=== PATIENT | male | born 1940 | race Two or more races ===

== ENCOUNTER → 2016-09-04 | Outpatient (CLI) | payer MEDICARE, OTHER ==
[~2016-09-04] MED LIST: ALLO300T PO; CHOL10003 PO; FINA5TAB4 PO; LOSA25TA5 PO; METO50TA82 PO; MULT-464 PO; RIVA20TA PO; ROSU5TAB PO; TAMS0.4C2 PO; WARF5TAB PO; WARF7.5T PO
[2016-09-04 09:30] LABS: BLOOD UREA NITROGEN 16 mg/dL (7-18)
[2016-09-04 09:33] LABS: ASPARTATE AMINO TRANSFERASE 17 U/L (15-37)
== END | disposition home or self-care (01) ==
LOC: STAR 08:12
PROVIDERS: ATTEND Urology
DX: Z01.818 Encounter for other preprocedural examination (principal); N40.1 Benign prostatic hyperplasia with lower urinary tract symptoms
CPT/HCPCS: 36415; 80053; 81003; 87086; 93005

== ENCOUNTER 2016-09-20 05:55 | Observation (INO) | payer MEDICARE, OTHER ==
[~2016-09-20] VITALS: Ht 182.9 cm; Wt 112.9 kg
[2016-09-20 07:02] VITALS: BP 142/97
[2016-09-20] MEDS ORDERED: LACTATED RINGERS 1,000 ML IV SCH (07:07)
[2016-09-20] MEDS ORDERED: LIDOCAINE 1%, 2ML SQ PRN (07:30)
[2016-09-20] MEDS ORDERED: FLUORESCEIN SODIUM 500 MG/5 ML ONE (08:42)
[2016-09-20] MEDS ORDERED: ALBUTEROL SULFATE 2.5 MG/3 ML NPPB PRN (09:00)
[2016-09-20] MEDS ORDERED: LABETALOL 5MG/ML, 20ML IV PRN (09:00)
[2016-09-20] MEDS ORDERED: METOPROLOL 1 MG/ML, 5ML IV PRN (09:00)
[2016-09-20] MEDS ORDERED: ONDANSETRON 2MG/ML, 2ML IVPush PRN (09:00)
[2016-09-20] MEDS ORDERED: EPHEDRINE 50 MG/ML, 1ML IVPush PRN (09:00)
[2016-09-20] MEDS ORDERED: MIDAZOLAM 1 MG/ML, 2ML IV PRN (09:00)
[2016-09-20] MEDS ORDERED: HYDROmorphone 1 MG/ML, 1ML IV PRN (09:00)
[2016-09-20] MEDS ORDERED: hydrALAzine 20 MG/ML, 1ML IV PRN (09:00)
[2016-09-20] MEDS ORDERED: OXYcodone 5 MG/5 ML ORAL.SOL UDC PO PRN (09:00)
[2016-09-20] MEDS ORDERED: MEPERIDINE/PF 25MG/0.5ML IVPush PRN (09:00)
[2016-09-20] MEDS ORDERED: ACETAMINOPHEN 325 MG TABLET PO PRN (09:00)
[2016-09-20] MEDS ORDERED: PROMETHAZINE 25 MG/ML, 1ML IV PRN (09:00)
[2016-09-20] MEDS ORDERED: ACETAMINOPHEN 325 MG TABLET ONE (10:55)
[2016-09-20] MEDS ORDERED: OXYcodone 5 MG/5 ML ORAL.SOL UDC ONE (10:55)
[2016-09-20] MEDS ORDERED: ACETAMINOPHEN 650 MG/20.3 ML UDC ONE (10:55)
[2016-09-20] MEDS ORDERED: FENTANYL PF 100 MCG/2ML ONE (10:59)
[2016-09-20] MEDS: FENTANYL PF 100 MCG/2ML IV PRN ×2 (11:10→11:17)
[2016-09-20 12:00] VITALS: BP 135/81
[2016-09-20] MEDS ORDERED: ONDANSETRON 2MG/ML, 2ML IV PRN (12:30)
[2016-09-20] MEDS ORDERED: HYDROmorphone 2 MG/ML, 1ML IV PRN (12:30)
[2016-09-20] MEDS ORDERED: D5%-0.45NACL+KCL 20MEQ 1,000 ML IV SCH (12:30)
[2016-09-20] MEDS ORDERED: OXYcodone/APAP 5/325MG TABLET PO PRN (12:30)
[2016-09-20] MEDS ORDERED: ROCURONIUM 10 MG/ML ONE (15:50)
[2016-09-20] MEDS ORDERED: PROPOFOL 10 MG/ML, 20ML ONE (15:50)
[2016-09-20] MEDS ORDERED: SUCCINYLCHOLINE 20 MG/ML, 10ML ONE (15:50)
[2016-09-20] MEDS ORDERED: CEFAZOLIN 1,000 MG ONE (15:50)
[2016-09-20] MEDS ORDERED: DEXAMETHASONE 4 MG/ML, 1ML ONE (15:50)
[2016-09-20] MEDS: METOPROLOL TARTRATE 100 MG TABLET PO SCH (17:20)
[2016-09-20 19:52] VITALS: BP 109/75
[2016-09-20] MEDS ORDERED: RIVAROXABAN 20 MG TABLET PO SCH (21:00)
[2016-09-20] MEDS ORDERED: ATORVASTATIN 40 MG TABLET PO SCH (21:00)
[2016-09-20 23:31] VITALS: BP 103/69
[2016-09-21 03:47] VITALS: BP 114/74
[2016-09-21] MEDS: METOPROLOL TARTRATE 100 MG TABLET PO SCH (05:51)
[2016-09-21 06:50] VITALS: BP 116/74
[2016-09-21] MEDS ORDERED: LOSARTAN 25MG TABLET PO SCH (09:00)
[2016-09-21] MEDS ORDERED: MULTIVITAMIN 1 TABLET PO SCH (09:00)
[2016-09-21] MEDS ORDERED: CHOLECALCIFEROL 1,000 UNIT TABLET PO SCH (09:00)
[2016-09-21 11:06] VITALS: BP 117/74
[2016-09-21] MEDS ORDERED: OXYC-302 PO (12:13)
== END 2016-09-21 12:25 | disposition home or self-care (01) ==
LOC: OUT 05:55 → 4NOR 11:59 → OUT 15:31 → DCLOUNGE 09-21 11:45
PROVIDERS: ADMIT Urology; ATTEND Urology
DX: N40.1 Benign prostatic hyperplasia with lower urinary tract symptoms (principal); N13.8 Other obstructive and reflux uropathy; R39.14 Feeling of incomplete bladder emptying; Z87.440 Personal history of urinary (tract) infections; Z87.442 Personal history of urinary calculi; Z82.49 Family history of ischemic heart disease and other diseases of the circulatory system; Z80.3 Family history of malignant neoplasm of breast
CPT/HCPCS: 52648; G0378; J0330; J0690; J1100; J2704; J3010; J3490; J7120